=== PATIENT | female | born 1950 | race Caucasian/White ===

== ENCOUNTER → 2017-08-11 | Outpatient (CLI) | payer MEDICARE ==
[~2017-08-11] MED LIST: ADVAIR 100/501 E1 INH; ALBUTEROL0.09 MG/A2 IH; CIPRO500 MG PO; DOXYCYCLINE100 M2 PO; K-DUR 20MEQ20 MEQ PO; LASIX 40MG40 MG/4 ML; LASIX20 MG PO; LASIX40 MG PO; LISINOPRIL40 MG PO; MEDROL4 MG PO; PAROXETINE HCL20 MG; PAXIL20 MG PO; ZESTRIL40 MG
== END | disposition home or self-care (01) ==
LOC: RAD 11:30
DX: Z13.820 Encounter for screening for osteoporosis (principal); Z78.0 Asymptomatic menopausal state; N95.9 Unspecified menopausal and perimenopausal disorder; M85.862 Other specified disorders of bone density and structure, left lower leg

== ENCOUNTER 2018-09-01 02:59 | Emergency (ER) | payer MEDICARE ==
[~2018-09-01] VITALS: Ht 160 cm; Wt 77.1 kg
[2018-09-01] MEDS ORDERED: CLINDAMYCIN HC300 MG PO (03:24)
[2018-09-01] MEDS ORDERED: Motrin,Rufen800 MG PO (03:24)
== END 2018-09-01 03:34 | disposition home or self-care (01) ==
LOC: ED 02:59
DX: K04.01 Reversible pulpitis (principal); K02.9 Dental caries, unspecified; Z88.5 Allergy status to narcotic agent; Z88.2 Allergy status to sulfonamides; Z79.899 Other long term (current) drug therapy; Z79.2 Long term (current) use of antibiotics; Z90.49 Acquired absence of other specified parts of digestive tract

== ENCOUNTER → 2022-12-26 | Outpatient (CLI) | payer MEDICARE ==
[~2022-12-26] MED LIST changes: +CLINDAMYCIN HC300 MG PO; +Motrin,Rufen800 MG PO
== END | disposition home or self-care (01) ==
LOC: MAMMO 13:30
PROVIDERS: ATTEND Nurse Practitioner Family
DX: Z12.31 Encounter for screening mammogram for malignant neoplasm of breast (principal); N64.89 Other specified disorders of breast